=== PATIENT | male | born 1975 | race Caucasian/White ===

== ENCOUNTER 2017-02-13 23:08 | Inpatient (IN) | payer OTHER ==
[~2017-02-13] VITALS: Ht 177.8 cm; Wt 82.1 kg
[2017-02-13] MEDS ORDERED: COLC0.6C3 PO (23:33)
[2017-02-13] MEDS ORDERED: THIA100T13 PO (23:33)
[2017-02-13] MEDS ORDERED: ASPI-605 PO (23:33)
[2017-02-13] MEDS ORDERED: MULT-1045 PO (23:33)
[2017-02-13] MEDS ORDERED: FOLI1TAB16 PO (23:33)
[2017-02-13] MEDS ORDERED: PANT40TA4 PO (23:33)
[2017-02-13] MEDS ORDERED: METOPROLOL XL PO (23:33)
[2017-02-13] MEDS ORDERED: ATOR80TA PO (23:33)
[2017-02-13] MEDS ORDERED: TICA90TA PO (23:33)
--- NOTE | 2017-02-13 23:43 | NUR ---
Pt ambulated to room, changed into gown and placed on monitor. Appears NSR initially. Pt c/o palpitations started today. Pt recent TX on 01/23/17 and discharged from [facility] on 02/01/17. Pt denies CP, denies SOB. EKG obtained and shown to . at bedside. IV established, labs drawn and sent. Pt during an episode of feeling palpitations a 10 beat run of Vtach noted and captured on the monitor. MD shown. Pt resting in position of comfort for self. Resp even and unlabored.
[2017-02-13] MEDS ORDERED: IV NORMAL SALINE 1000 ML BAG IV ONE (23:45)
[2017-02-13 23:55] LABS: BASOPHILS # (AUTO) 0.1 K/uL (0.0-8.0); BASOPHILS % (AUTO) 0.9 % (0.0-2.0); CREATININE 1.2 mg/dL (0.6-1.3); EOSINOPHILS # (AUTO) 0.1 K/uL (0.0-0.7); EOSINOPHILS % (AUTO) 1.3 % (0.0-7.0); HEMATOCRIT 37.6 % (40-50); HEMOGLOBIN 12.5 G/DL (14.0-18.0); LYMPHOCYTES # (AUTO) 2.1 K/UL (0.8-4.8); LYMPHOCYTES % (AUTO) 34.6 % (20.5-51.5); MEAN CORPUSCULAR HEMOGLOBIN 31.4 UUG (27.0-31.0); MEAN CORPUSCULAR HGB CONC 33 g/dL (32.0-37.0); MEAN CORPUSCULAR VOLUME 94.4 FL (82.0-92.0); MONOCYTES # (AUTO) 0.5 K/UL (0.1-1.30); MONOCYTES % (AUTO) 8.1 % (0.0-11.0); NEUTROPHILS # (AUTO) 3.3 K/UL (1.8-8.9); NEUTROPHILS % (AUTO) 55.1 % (38.5-71.5); PLATELET COUNT (AUTO) 346 K/UL (150-450); POTASSIUM 3.8 mmol/L (3.5-5.1); RED BLOOD CELL COUNT(AUTO) 3.98 MIL/UL (4.7-6.1); WHITE BLOOD COUNT (AUTO) 6.1 K/UL (4.0-11.2)
[2017-02-14 00:12] LABS: BILIRUBIN,DIRECT 0.1 mg/dL (0.0-0.2); BILIRUBIN,TOTAL 0.3 mg/dL (0.2-1.0); TOTAL PROTEIN, SERUM 7.2 g/dL (6.4-8.2)
--- NOTE | 2017-02-14 00:15 | NUR ---
MD aware of pt's blood pressure. Awaiting further orders. Pt cont to deny CP and SOB.
[2017-02-14] MEDS ORDERED: IV NS 1000 ML 1,000 ML IV PRN (00:39)
[2017-02-14] MEDS ORDERED: ACETAMINOPHEN 325 MG TABLET PO PRN (00:45)
[2017-02-14] MEDS ORDERED: ONDANSETRON 4 MG/2 ML VIAL IV PRN (00:45)
[2017-02-14] MEDS ORDERED: AMIODARONE HCL IV 150 MG in IV DEXTROSE 5% 100 ML IV ONE (00:45)
[2017-02-14] MEDS ORDERED: ALPRAZOLAM 0.25 MG TABLET PO PRN (00:45)
[2017-02-14] MEDS ORDERED: AMIODARONE HCL 150 MG/3 ML VIAL IV ONE ×2 (00:54→01:52)
--- NOTE | 2017-02-14 01:10 | NUR ---
Report called to [facility]. Preparing to transfer pt to the floor.
[2017-02-14] MEDS ORDERED: AMIODARONE HCL IV 900 MG in IV DEXTROSE 5% 500 ML IV ONE (01:30)
--- NOTE | 2017-02-14 01:30 | NUR ---
Pt refusing to be admitted to the floor at this time, until his link knitting machine operator is contacted and have heard back from. Page to answering service placed.
[2017-02-14] MEDS ORDERED: PROMETHAZINE HCL 25 MG/1 ML VIAL ONE (01:55)
--- NOTE | 2017-02-14 02:28 | NUR ---
Dr. Lucero spoke with pt's windows application administrator. Pt to be admitted.
--- NOTE | 2017-02-14 02:36 | NUR ---
nsg: pt received fr er, a/o x 4, with dx of cardiac arrhythmia. v/s stable. on amiodarone drip at 1mg/min, started in er at 0212. pt denies palpitations, chest pain or any discomfort at this time. ambulatory. family at the bedside.
--- NOTE | 2017-02-14 02:38 | NUR ---
PT BEING ADMITTED FROM ER. PT IS ALERT AND RESPONSIVE. RESP IS EVEN AND UNLABORED. NO SOB. ON TELE MONITORING WITH SR WITH OCCASIONAL PVCs. NO C/O CHEST PAIN AT THIS TIME. PT IS ON IV AMIODARONE DRIP RUNNING AT 1MG/MIN, WAS STARTED ON 2:10AM, AND INFUSING WELL. IV IS PATENT AND INTACT. AT BEDSIDE. CALL LIGHT IS WITH IN REACH.
--- NOTE | 2017-02-14 02:40 | NUR ---
CALLED AND SPOKE WITH DR LONGORIA AND INFORMED MD OF PT BEING ON AMIODARONE DRIP AND OF PTS VS BP OF 96/51 AND HR OF 72. ASKED MD FOR PARAMETERS FOR AMIODARONE, PER MD IT DOES NOT NEED AMIODARONE "IT'S A DRIP CONTINUE GIVING IT".
[2017-02-14 02:50] VITALS: BP 94/66
--- NOTE | 2017-02-14 03:00 | NUR ---
nsg: pt refused administration of cont ivf.
[2017-02-14 04:00] VITALS: BP 97/61
--- NOTE | 2017-02-14 05:47 | NUR ---
nsg: pt resting comfortably. denies discomfort. still on amiodarone drip at 1mg/min. needs to change rate to 0.5mg/min at 0812 this am. will endorse to am shift.
--- NOTE | 2017-02-14 06:50 | NUR ---
nsg: pt refused am lab draw until he sees a physician.
[2017-02-14 07:43] VITALS: BP 95/57
--- NOTE | 2017-02-14 08:15 | NUR ---
awake alert and oriented, denies of chest pains, no palpitations, no dyspnea, on room air with sat of 95%, up and about in the room, on amiodarone drip of 0.5mg/min tele SR 62, Dr Bonilla called and informed of BP 95/57 and been on SB/SR in the low 60's, order to d/c amiodarone drip given and carried out
[2017-02-14] MEDS ORDERED: PANTOPRAZOLE SODIUM 40 MG TABLET.DR PO SCH (08:29)
--- NOTE | 2017-02-14 08:30 | NUR ---
at bedside, explained plan of care to pt but states cannot wait for telephone order clerk to see him, wanted to see his telephone order clerk in [place] this am, and wanted to go AMA, explained risks involved- but decided to go AMA- charge nurse informed and called Dr Villanueva- to return call
--- NOTE | 2017-02-14 08:45 | NUR ---
Dr Booker called and informed, pt refused to take am meds- states will take them at home
[2017-02-14] MEDS ORDERED: TICAGRELOR 90 MG TABLET PO SCH (09:00)
[2017-02-14] MEDS ORDERED: MULTIVIT, IRON, MIN NO. 8, FA TABLET PO SCH (09:00)
[2017-02-14] MEDS ORDERED: THIAMINE HCL 100 MG TABLET PO SCH (09:00)
[2017-02-14] MEDS ORDERED: COLCHICINE 0.6 MG TABLET PO SCH (09:00)
[2017-02-14] MEDS ORDERED: FOLIC ACID 1 MG TABLET PO SCH (09:00)
[2017-02-14] MEDS ORDERED: ASPIRIN EC 81 MG TABLET.DR PO SCH (09:00)
--- NOTE | 2017-02-14 09:15 | NUR ---
AMA papers signed, instructions given- verbalized understanding, saline lock x 2 removed- no swelling/redness noted on sites
--- NOTE | 2017-02-14 09:30 | NUR ---
ambulated to car with , no chest pains,no palpitations, all belongings with him
[2017-02-14] MEDS ORDERED: ATORVASTATIN 40 MG TABLET PO SCH (21:00)
== END 2017-02-14 09:30 | disposition left against medical advice (07) | DRG 309 ==
LOC: ER 23:09 → TELE-TD 02-14 00:30
PROVIDERS: ADMIT Nurse Practitioner Acute Care; ATTEND Nurse Practitioner Acute Care
DX: I49.9 Cardiac arrhythmia, unspecified (principal); I47.2 Ventricular tachycardia; I25.2 Old myocardial infarction; I11.9 Hypertensive heart disease without heart failure; Z95.5 Presence of coronary angioplasty implant and graft; Z79.899 Other long term (current) drug therapy; Z79.82 Long term (current) use of aspirin
CPT/HCPCS: 36415; 70030-TC; 71010; 83735; 84100; 85025; 85730; 93005; J0282; J2550; J7030; J7060